=== PATIENT | male | born 1990 | race African-American/Black ===

== ENCOUNTER 2017-02-05 19:47 | Emergency (ER) | payer MEDICAID ==
[2017-02-05 21:44] VITALS: BP 129/86
== END 2017-02-05 21:44 | disposition home or self-care (01) ==
LOC: ED 19:47
DX: S46.911A Strain of unspecified muscle, fascia and tendon at shoulder and upper arm level, right arm, initial encounter (principal); R03.0 Elevated blood-pressure reading, without diagnosis of hypertension; X58.XXXA Exposure to other specified factors, initial encounter; Y93.89 Activity, other specified; Y99.8 Other external cause status; Y92.89 Other specified places as the place of occurrence of the external cause
CPT/HCPCS: J1885; Q0092